=== PATIENT | female | born 1995 | race Caucasian/White ===

== ENCOUNTER 2016-10-26 18:44 | Emergency (ER) | payer BC ==
[~2016-10-26] VITALS: Ht 160 cm; Wt 56.8 kg
[~2016-10-26 18:44] MED LIST: CEFTIN500 MG PO; METADATE PO; NO HOME MEDICATIONS
[2016-10-26 18:58] VITALS: BP 127/82; TEMP 99.2
[2016-10-26] MEDS ORDERED: BRINTELLIX10 (19:01)
[2016-10-26] MEDS ORDERED: ATIVAN 1MG T1 MG/TAB PO (19:01)
[2016-10-26] MEDS ORDERED: FLEXERIL 1010 MG/TAB PO (20:33)
[2016-10-26 20:55] VITALS: PULSE 86
== END 2016-10-26 20:55 | disposition home or self-care (01) ==
LOC: COL.ER 18:44
DX: S09.90XA Unspecified injury of head, initial encounter (principal); S16.1XXA Strain of muscle, fascia and tendon at neck level, initial encounter; W01.10XA Fall on same level from slipping, tripping and stumbling with subsequent striking against unspecified object, initial encounter; R40.2412 Glasgow coma scale score 13-15, at arrival to emergency department; F41.9 Anxiety disorder, unspecified; F43.10 Post-traumatic stress disorder, unspecified
CPT/HCPCS: J1885; J2360

== ENCOUNTER → 2016-12-20 | Outpatient (CLI) | payer BC ==
[~2016-12-20] MED LIST changes: +ATIVAN 1MG T1 MG/TAB PO; +BRINTELLIX10; +FLEXERIL 1010 MG/TAB PO
== END ==
LOC: COL.RAD 15:38
DX: R10.31 Right lower quadrant pain (principal); R11.0 Nausea; Z97.5 Presence of (intrauterine) contraceptive device

== ENCOUNTER 2017-10-12 20:01 | Emergency (ER) | payer BC ==
[~2017-10-12] VITALS: Ht 160 cm; Wt 61.4 kg
[2017-10-12 20:08] VITALS: TEMP 98.1
[2017-10-12 20:45] LABS: BASO # 0.1 (0.0-0.2); BASO % 0.5 % (0.0-2.0); EOS # 0.1 (0.0-0.7); GRAN # 7.3 (1.4-6.5); HEMATOCRIT 41.4 % (37.0-47.0); HEMOGLOBIN 13.9 g/dl (12.5-16.0); LYMPH # 3.4 (1.2-3.4); LYMPH % 28.4 % (20.0-51.0); MEAN CELL VOLUME 90 fl (80.0-100.0); MEAN CORPUSCULAR HEMOGLOBIN 30 pg (27.0-31.0); MEAN CORPUSCULAR HGB CONC 34 g/dl (33.0-37.0); MEAN PLATELET VOLUME 9.6 fl (7.4-10.4); MONO # 1.1 (0.1-0.6); MONO % 8.9 % (1.7-9.3); PLATELET COUNT 335 K/mm3 (130-400); RED BLOOD COUNT 4.61 M/mm3 (4.10-5.30); REDCELL DISTRIBUTION WIDTH-CV 12.8 % (11.5-14.5)
[2017-10-12 20:52] LABS: COLLECTION METHOD CLEAN CATCH
[2017-10-12 21:02] LABS: ALANINE AMINOTRANSFERASE 29 U/L (9-52); ALBUMIN 4.5 gm/dL (3.5-5.0); ALKALINE PHOSPHATASE 94 U/L (50-136); ANION GAP 14 mmol/L (7-16); AST,SGOT 36 U/L (15-37); BILIRUBIN,TOTAL 0.4 mg/dL (0.0-1.0); BLOOD UREA NITROGEN 14 mg/dL (7-17); CARBON DIOXIDE 24 mmol/L (22-30); CHLORIDE 101 mmol/L (98-107); CREATININE, serum 0.75 mg/dL (0.52-1.25); GLUCOSE 102 mg/dL (74-106); LIPASE 88 U/L (23-300); POTASSIUM 3.6 mmol/L (3.4-5.0); SODIUM 139 mmol/L (137-145); TOTAL PROTEIN 8.8 gm/dL (6.4-8.2)
[2017-10-12 21:04] LABS: PH 7 (5-8); URINE APPEARANCE Clear; URINE BACTERIA None Seen /hpf; URINE BILIRUBIN Negative (NEGATIVE); URINE BLOOD Negative (NEGATIVE); URINE COLOR Straw; URINE GLUCOSE Negative (NEGATIVE); URINE KETONE Negative (NEGATIVE); URINE LEUKOCYTE ESTERASE Trace (NEGATIVE); URINE NITRATE Negative (NEGATIVE); URINE PROTEIN(semi-quant) Negative (NEGATIVE); URINE RBC 0-2 /hpf; URINE UROBILINOGEN Negative (NEGATIVE)
[2017-10-12 21:05] LABS: C-REACTIVE PROTEIN < 0.5 mg/dL (0.0-0.9)
[2017-10-12 22:30] VITALS: BP 129/76; PULSE 90
== END 2017-10-12 22:31 | disposition home or self-care (01) ==
LOC: COL.ER 20:01
PROVIDERS: Emergency Medicine
DX: N23 Unspecified renal colic (principal)
CPT/HCPCS: J1885; J2405; J7030; Q9967

== ENCOUNTER → 2018-08-22 | Outpatient (CLI) | payer BC | LOC: MC.RAD 06:58 | DX: M79.89 Other specified soft tissue disorders (principal) ==

== ENCOUNTER 2018-10-11 17:41 | Emergency (ER) | payer BC ==
[~2018-10-11] VITALS: Ht 160 cm; Wt 60.0 kg
[2018-10-11 17:50] VITALS: BP 151/82; TEMP 98
[2018-10-11] MEDS ORDERED: VYVANSE20 MG PO (18:16)
[2018-10-11] MEDS ORDERED: ZOFRAN ODT4 MG PO (18:16)
[2018-10-11 20:44] VITALS: PULSE 88
== END 2018-10-11 20:24 | disposition home or self-care (01) ==
LOC: COL.ER 17:41
DX: S00.93XA Contusion of unspecified part of head, initial encounter (principal); R11.0 Nausea; F90.9 Attention-deficit hyperactivity disorder, unspecified type; Z87.820 Personal history of traumatic brain injury; W22.8XXA Striking against or struck by other objects, initial encounter; Y99.0 Civilian activity done for income or pay

== ENCOUNTER 2024-02-01 12:47 | Emergency (ER) | payer BC ==
[~2024-02-01] VITALS: Ht 160 cm; Wt 75.0 kg
[~2024-02-01 12:47] MED LIST changes: +VYVANSE20 MG PO; +ZOFRAN ODT4 MG PO
[2024-02-01 12:52] VITALS: TEMP 97.8
[2024-02-01] MEDS ORDERED: Ondansetron 4 MG/2 ML VIAL IV ONE (15:15)
[2024-02-01] MEDS ORDERED: NS 1,000 ML IV ONE (15:15)
[2024-02-01] MEDS ORDERED: LORazepam 2 MG/ML 1 ML VIAL IV ONE (15:15)
[2024-02-01 15:42] LABS: BASO # 0.1 K/mm3 (0.0-0.2); BASO % 0.7 % (0.0-2.0); EOS % 0.3 % (0.0-4.0); GRAN # 9.5 K/mm3 (1.4-6.5); GRAN % 74.1 % (42.2-75.2); HEMATOCRIT 42.4 % (37.0-47.0); HEMOGLOBIN 14.2 g/dl (12.5-16.0); LYMPH % 15.5 % (20.0-51.0); MEAN CELL VOLUME 93 fl (80.0-100.0); MEAN CORPUSCULAR HEMOGLOBIN 31 pg (27-31); MEAN CORPUSCULAR HGB CONC 34 g/dl (33.0-37.0); MEAN PLATELET VOLUME 9.5 fl (7.4-10.4); MONO # 1.1 K/mm3 (0.1-0.6); MONO % 8.9 % (1.7-9.3); PLATELET COUNT 357 K/mm3 (130-400); RED BLOOD COUNT 4.56 M/mm3 (4.10-5.30); REDCELL DISTRIBUTION WIDTH-CV 13.2 % (11.5-14.5)
[2024-02-01 15:57] LABS: ALBUMIN 3.9 g/dL (3.5-5.0); BILIRUBIN,TOTAL 0.4 mg/dL (0.2-1.2); CREATININE, serum 0.79 mg/dL (0.57-1.11); POTASSIUM 3.9 mEq/L (3.5-4.5); TOTAL PROTEIN 7.8 g/dl (6.2-8.1)
[2024-02-01 16:02] LABS: TROPONIN-I 0.018 ng/mL (0.00-0.033)
[2024-02-01 17:15] LABS: COLLECTION METHOD CLEAN CATCH
[2024-02-01 17:18] LABS: PH 6.5 (5.0-8.5); URINE APPEARANCE CLEAR (CLEAR/HAZY); URINE BLOOD NEGATIVE (NEGATIVE); URINE COLOR YELLOW (YELLOW); URINE GLUCOSE NEGATIVE (NEGATIVE); URINE KETONE NEGATIVE (NEGATIVE); URINE NITRATE NEGATIVE (NEGATIVE); URINE PROTEIN(semi-quant) NEGATIVE (NEGATIVE); URINE UROBILINOGEN 0.2 E.U/dL (0.2-1.0)
[2024-02-01] MEDS ORDERED: PRINIVIL10 MG PO (17:30)
[2024-02-01 17:50] VITALS: BP 131/110; PULSE 95
== END 2024-02-01 17:48 | disposition home or self-care (01) ==
LOC: COL.ER 12:47
PROVIDERS: Physician Assistant
DX: R53.81 Other malaise (principal); R03.0 Elevated blood-pressure reading, without diagnosis of hypertension
CPT/HCPCS: J2060; J2405; J7030